=== PATIENT | female | born 1950 | race Caucasian/White ===

== ENCOUNTER 2018-07-09 19:28 | Emergency (ER) | payer MEDICARE, OTHER ==
[2018-07-09] MEDS: AZITHROMYCIN 250 MG TAB PO (22:31)
[2018-07-09] MEDS: BENZONATATE 100 MG CAP PO (22:32)
== END 2018-07-09 22:50 | disposition home or self-care (01) ==
LOC: E/R 19:28
DX: J40 Bronchitis, not specified as acute or chronic (principal); E11.9 Type 2 diabetes mellitus without complications; I10 Essential (primary) hypertension; Z79.4 Long term (current) use of insulin; Z79.82 Long term (current) use of aspirin
CPT/HCPCS: 99283